=== PATIENT | female | born 1990 | race Two or more races ===

== ENCOUNTER 2018-11-15 10:36 | Emergency (ER) | payer OTHER ==
[~2018-11-15] VITALS: Ht 157.5 cm; Wt 63.5 kg
[~2018-11-15 10:36] MED LIST: FOLIC ACID1 MG PO; OMEPRAZOLE40 MG PO; PEPCID20 MG PO; ZANTAC300 MG PO
== END 2018-11-15 12:06 | disposition home or self-care (01) ==
LOC: ER 10:36
DX: S61.011A Laceration without foreign body of right thumb without damage to nail, initial encounter (principal); W26.0XXA Contact with knife, initial encounter; Y93.89 Activity, other specified; Y92.018 Other place in single-family (private) house as the place of occurrence of the external cause; Y99.8 Other external cause status